=== PATIENT | female | born 1960 | race Caucasian/White ===

== ENCOUNTER 2023-02-24 07:52 | Outpatient (CLI) | payer OTHER, SELFPAY ==
--- NOTE | ~2023-02-24 | NM_ITS ---
EXAMINATION: NM hepatobiliary wo pharm DATE: 02/24/2023 10:37 INDICATION: Gallstone COMPARISON: None. TECHNIQUE: 4.9 mCi Tc-99m mebrofenin (Choletec) was administered intravenously. Scintigraphic images of the abdomen were obtained for one hour. At the 1 hour and 10 minute time point, the patient drank 8 oz Ensure, and imaging was continued for 60 minutes. Gallbladder ejection fraction was calculated by the technologist. FINDINGS: There is normal clearance of radiotracer from the blood pool. There is homogeneous tracer u ptake by the liver. Activity progresses to the bowel and gallbladder. The gallbladder ejection fract ion (GBEF) is 46%. Note that with this technique, normal GBEF >= 33%. IMPRESSION: 1. Normal hepatobiliary scan Reviewed, dictated and finalized at location B.
== END 2023-02-24 07:53 | disposition home or self-care (01) ==
PROVIDERS: PCP Internal Medicine; Visit Provider Internal Medicine
DX: K80.20 Calculus of gallbladder without cholecystitis without obstruction (principal)
CPT/HCPCS: 78226; A9537